=== PATIENT | female | born 1955 | race Hispanic/Latino ===

== ENCOUNTER 2017-10-14 04:38 | Emergency (ER) | payer OTHER ==
[2017-10-14] MEDS ORDERED: Oxycodone/Acetaminophen 5/325 mg Tab PO STA (05:21)
--- NOTE | 2017-10-14 05:46 | ED PDOC ---
HPI: Abdomen Time Seen by Provider: 10/14/17 04:52 Chief Complaint (Nursing): Abdominal Pain Chief Complaint (Provider): Abdominal Pain History Per: Patient History/Exam Limitations: no limitations Onset/Duration Of Symptoms: Days (x3 weeks) Current Symptoms Are (Timing): Still Present Additional Complaint(s): 61 y/o female with a PMHx of breast and liver cancer presenting to the ER for evaluation of abdominal pain x3 weeks. Patient reports she was diagnosed with liver cancer 3 weeks ago. She says she had a biopsy done at [facility] as part of a research team. Patient also reports she has not had a bowel movement for 3 days and says she feels very gassy. She denies any nausea, vomiting, urinary symptoms, or fevers. PCP: Dr. Siu Past Medical History Reviewed: Historical Data, Nursing Documentation, Vital Signs Vital Signs: Last Vital Signs Temp 98.2 F 10/14/17 04:55 Pulse 98 H 10/14/17 04:55 Resp 16 10/14/17 04:55 BP 130/88 10/14/17 04:55 Pulse Ox 97 10/14/17 07:28 - Medical History Other PMH: Breast cancer, Liver cancer - Surgical History Surgical History: No Surg Hx - Family History Family History: States: Unknown Family Hx - Allergies Allergies/Adverse Reactions: Allergies Allergy/AdvReac Type Severity Reaction Status Date / Time No Known Allergies Allergy Verified 10/14/17 04:55 Review of Systems ROS Statement: Except As Marked, All Systems Reviewed And Found Negative Constitutional: Negative for: Fever Gastrointestinal: Positive for: Abdominal Pain, Constipation. Negative for: Nausea, Vomiting Genitourinary Female: Negative for: Dysuria, Frequency, Incontinence Physical Exam - Reviewed Nursing Documentation Reviewed: Yes Vital Signs Reviewed: Yes - Physical Exam Appears: Positive for: Non-toxic, No Acute Distress, Uncomfortable Head Exam: Positive for: ATRAUMATIC, NORMAL INSPECTION, NORMOCEPHALIC Skin: Positive for: Normal Color, Warm, Dry. Negative for: Rash Eye Exam: Positive for: EOMI, Normal appearance, PERRL ENT: Positive for: Normal ENT Inspection Neck: Positive for: Normal, Painless ROM, Supple Cardiovascular/Chest: Positive for: Regular Rate, Rhythm. Negative for: Murmur Respiratory: Positive for: Normal Breath Sounds. Negative for: Respiratory Distress Gastrointestinal/Abdominal: Positive for: Normal Exam, Soft, Other (biopsy site appears clean, no erythema, no drainage). Negative for: Tenderness Back: Positive for: Normal Inspection. Negative for: L CVA Tenderness, R CVA Tenderness, Vertebral Tenderness Extremity: Positive for: Normal ROM. Negative for: Pedal Edema, Deformity Neurologic/Psych: Positive for: Alert, Oriented. Negative for: Motor/Sensory Deficits - Laboratory Results Result Diagrams: 10/14/17 05:45 10/14/17 05:45 - ECG O2 Sat by Pulse Oximetry: 97 (RA) Pulse Ox Interpretation: Normal Medical Decision Making Medical Decision Makin:20 A/P: 61 y/o female with a PMHx of liver cancer presenting with abdominal pain -Patient appears uncomfortable, but otherwise healthy with normal vitals -Pain could be secondary to biopsy, unlikely perforation given no signs of peritonitis on exam -Possibly constipation since patient is on opiates 07:[address] Meneses pending X-rays and reevaluation. ----- Scribe Attestation: Documented by Tj Davis, acting as a scribe for Neno Corea MD. Provider Scribe Attestation: All medical record entries made by the Scribe were at my direction and personally dictated by me. I have reviewed the chart and agree that the record accurately reflects my personal performance of the history, physical exam, medical decision making, and the department course for this patient. I have also personally directed, reviewed, and agree with the discharge instructions and disposition. Disposition - Clinical Impression Clinical Impression: Abdominal pain - Patient ED Disposition Is Patient to be Admitted: Transfer of Care - Disposition Disposition: Transfer of Care Disposition Time: 07:00 Condition: STABLE Forms: [employer] (Bolivian) Patient Signed Over To: Shankar Meneses III Handoff Comments: pending X-rays and reevaluation
[2017-10-14 05:50] LABS: BASO % 0.4 % (0.0-2.0); EOS # 0.1 K/uL (0.0-0.7); HEMOGLOBIN 12.7 g/dL (12.0-16.0); LYMPH % 12.9 % (20.0-40.0); MEAN CELL VOLUME 89.4 fl (81.0-99.0); MEAN CORPUSCULAR HEMOGLOBIN 30.9 pg (27.0-31.0); MEAN CORPUSCULAR HGB CONC 34.6 g/dL (33.0-37.0); MONO # 0.6 K/uL (0.0-0.8); NEUT # 6.1 K/uL (1.8-7.0); NEUT % 77.7 % (50.0-75.0); NRBC % 0.1 % (0.0-0.0); RBC 4.11 Mil/uL (3.80-5.20); RED CELL DISTRIBUTION WIDTH 13.8 % (11.5-14.5); WHITE BLOOD COUNT 7.9 K/uL (4.8-10.8)
[2017-10-14 05:57] LABS: SQUAMOUS EPITHIAL 3 /hpf (0-5); URINE BILIRUBIN NEGATIVE (NEGATIVE); URINE BLOOD NEGATIVE (NEGATIVE); URINE CLARITY SLIGHTY-CLOUDY (Clear); URINE COLOR YELLOW (YELLOW); URINE GLUCOSE (UA) NEG (Normal); URINE LEUKOCYTE ESTERASE NEG Leu/uL (Negative); URINE PROTEIN NEGATIVE (NEGATIVE); URINE UROBILINOGEN 0.2-1.0 mg/dL (0.2-1.0)
[2017-10-14 06:03] LABS: ALB/GLOB RATIO 1.2 (1.0-2.1); ALBUMIN 4.4 g/dL (3.5-5.0); ALT/SGPT 275 U/L (9-52); AST/SGOT 537 U/L (14-36); BILIRUBIN,DIRECT 1.2 mg/ml (0.0-0.4); BLOOD UREA NITROGEN 12 mg/dl (7-17); CALCIUM 9.5 mg/dL (8.4-10.2); GFR AFRICAN-AMERICAN > 60; GFR NON-AFRICAN AMERICAN > 60
--- NOTE | 2017-10-14 07:06 | ED PDOC ---
- Laboratory Results Result Diagrams: 10/14/17 05:45 10/14/17 05:45 - ECG O2 Sat by Pulse Oximetry: 97 (RA) Medical Decision Making Medical Decision Making: Time: 0700 --Patient is endorsed to provider by Dr. Corea, pending trial of Fleet enema and re-evaluation. Will order CT ABD if no improvement is reported. --9am patient feeling much better. Denies current pain. Offered CT for definitive reassurance not post procedure complication but prefers trial outpatient cathartics if pain returns will come back to ED. Vitals stable. Abdomen re-exam soft, no focal tenderness. Hgb normal. LFTs elevated but expected given clinical condition. She is not on frequent stool softeners or cathartics despite now on oxycodone. Will Rx some trial cathartics and followup oncology has appt in several days. D/w Dr Siu PMD for continuity of care. Scribe Attestation: Documented by Nneka Crawford, acting as a scribe for Shankar Meneses III, DO. Provider Scribe Attestation: All medical record entries made by the Scribe were at my direction and personally dictated by me. I have reviewed the chart and agree that the record accurately reflects my personal performance of the history, physical exam, medical decision making, and the department course for this patient. I have also personally directed, reviewed, and agree with the discharge instructions and disposition. Disposition - Clinical Impression Clinical Impression: Abdominal pain, Elevated LFTs - POA Present On Arrival: None - Disposition Disposition: Routine/Home Disposition Time: 09:07 Condition: STABLE Additional Instructions: See your oncologist in 1-3 days for re-evaluation. Return to ER for any worse or new pain, weakness, fever, or any concern. Use stool softeners everyday. Take enema as needed. Prescriptions: Bisacodyl [Ducolax] 10 mg RC BID PRN #10 sup PRN Reason: Constipation Peg Electrolyte Lavage Solut [Golytely] 1,000 ml PO BID PRN #1 bottle PRN Reason: Constipation Instructions: Constipation in Adults, Acute Abdomen (Belly Pain), Adult (DC) Forms: [employer] (Maltese)
[2017-10-14 08:27] VITALS: BP 133/78; PULSE 64; RESP 20; TEMP 98
[2017-10-14 08:52] VITALS: O2SAT 97
--- NOTE | 2017-10-14 10:11 | RAD ---
Date of service: 10/14/2017 PROCEDURE: Radiographs of the chest and abdomen (obstructive series) HISTORY: abd pain, liver biopsy yest, no BM in 3 days COMPARISON: No prior. TECHNIQUE: AP radiograph of the chest, with upright and supine radiographs of the abdomen. FINDINGS: CHEST: Lungs: Clear. Cardiovascular: Normal size heart. No pulmonary vascular congestion. Pleura: No pleural fluid. No pneumothorax. Other findings: None. ABDOMEN AND PELVIS: Bowel: Mild constipation, otherwise unremarkable bowel gas pattern. No evidence of mechanical obstruction. Free air: None. Bones: Unremarkable. Other findings: Surgical clips are noted at the right upper abdomen suggestive of prior cholecystectomy. IMPRESSION: Mild constipation, otherwise unremarkable radiographs of chest and abdomen. No evidence of mechanical bowel obstruction.
== END 2017-10-14 09:23 | disposition home or self-care (01) ==
LOC: H.ER 04:38
DX: R10.9 Unspecified abdominal pain (principal); R79.89 Other specified abnormal findings of blood chemistry; C22.9 Malignant neoplasm of liver, not specified as primary or secondary
CPT/HCPCS: 74022; 80048; 80076; 81003; 85025; 96374; 99284; J1885